=== PATIENT | male | born 1970 ===

== ENCOUNTER 2021-06-16 04:38 | Day surgery (SDC) | payer OTHER ==
[2021-06-16 09:39] VITALS: BMI 25.6
[2021-06-16 11:57] VITALS: BP 124/78; PULSE 68; TEMP 98
== END 2021-06-16 12:08 | disposition home or self-care (01) ==
LOC: JASU-ENDO 04:38
PROVIDERS: ATTEND Internal Medicine Gastroenterology
PROC: 0DBN8ZX Excision of Sigmoid Colon, Via Natural or Artificial Opening Endoscopic, Diagnostic (ICD-10-PCS; 2021-06-16)
PROC: 0DBP8ZX Excision of Rectum, Via Natural or Artificial Opening Endoscopic, Diagnostic (ICD-10-PCS; principal; 2021-06-16 09:30)
DX: K62.1 Rectal polyp (principal); D12.5 Benign neoplasm of sigmoid colon; K64.8 Other hemorrhoids
CPT/HCPCS: 88305-TC